=== PATIENT | male | born 1960 | race Caucasian/White ===

== ENCOUNTER → 2016-06-18 | Emergency (ER) | payer OTHER, BC ==
[~2016-06-18] VITALS: Ht 177.8 cm; Wt 93.3 kg
[~2016-06-18] MED LIST: FLUT9.9S NS; GLUC-144 PO; IBUP-15 PO; LORA10TA7 PO; [UNRECOGNIZED DRUG - REMARK]
--- NOTE | 2016-06-18 12:33 | Diagnostic Imaging Report ---
Three views of the lumbar spine. INDICATION: Fall. FINDINGS: There is left convexity scoliosis of the lumbar spine centered around the L3 level. There is a suggestion of minimal vertebral height loss anteriorly at the T12 and L1 levels. There are associated multilevel disc degenerative changes with osteophyte formation and mild disc height loss at the L1-L2 level. No significant posterior osteophyte is seen. There is satisfactory alignment of the posterior spinal line suggested. IMPRESSION: Left convexity scoliosis and associated degenerative changes. There is minimal anterior wedge deformity at the T12 and L1 levels. If the location of injury and pain is around the upper lumbar spine, then MRI evaluation could be considered. Dictated by: Dictated on workstation # [id number]
--- NOTE | 2016-06-18 13:52 | ED Trauma-Multisystem ---
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 He now relates to acute pain and stiffness. There is no numbness or tingling. Occurred: Just Prior to Arrival Pain/Injury Location: Back Method of Injury: Fall Allergies and Home Medications Allergies Coded Allergies: No Known Drug Allergies (Verified Allergy, Unknown, 10/24/07) Home Medications Fluticasone Propionate 9.9 Ml [place].susp, 9.9 ML NS, (Reported) Glucosamine HCl/Chondr Coleman A Na 1 Each Tablet, 1 EACH PO DAILY, (Reported) Ibuprofen 200 Mg Tablet, 800 MG PO DAILY, (Reported) Loratadine 10 Mg Tablet, 10 MG PO DAILY, (Reported) Constitutional: see HPI Eyes: No Symptoms Reported Ears: No Symptoms Reported Nose: No Symptoms Reported Mouth: No Symptoms Reported Throat: No Symptoms to Report Respiratory: no symptoms reported Cardiovascular: No Symptoms Reported Gastrointestinal: no symptoms reported Genitourinary: no symptoms reported Musculoskeletal: back pain, muscle stiffness Skin: no symptoms reported Psychiatric/Neurological: No Symptoms Reported Past Pvvbzfd-Rghiwb-Uszzxh Hx Patient Social History Alcohol Use: Occasionally Uses Recreational Drug Use: No Smoking Status: Never a Smoker Recent Foreign Travel: No Contact w/Someone Who Travel: No Recent Infectious Disease Expo: No Recent Hopitalizations: No Immunizations Up To Date Tetanus Booster (TDap): Less than 5yrs Date of Influenza Vaccine: Nov 27, 2015 Seasonal Allergies Seasonal Allergies: Yes Surgeries HX Surgeries: Yes Surgeries: Adenoidectomy, Appendectomy, Tonsillectomy, Vasectomy Respiratory Hx Respiratory Disorders: No Cardiovascular Hx Cardiac Disorders: No Neurological Hx Neurological Disorders: No Reproductive System Hx Reproductive Disorders: No Sexually Transmitted Disease: No HIV/AIDS: No Genitourinary Hx Genitourinary Disorders: No Gastrointestinal Hx Gastrointestinal Disorders: No Musculoskeletal Hx Musculoskeletal Disorders: Yes Musculoskeletal Disorders: Arthritis Endocrine Hx Endocrine Disorders: No HEENT HX ENT Disorders: No Hearing Impairment: Denies Cancer Hx Cancer: No Psychosocial Hx Psychiatric Problems: No Integumentary HX Skin/Integumentary Disorder: No Blood Transfusions Hx Blood Disorders: No Physical Exam Vital Signs Vital Sign - Last 12Hours 06/18/16 11:19 Temp 98.2 Pulse 75 Resp 16 B/P (MAP) 129/83 Pulse Ox 96 Temperature (Fahrenheit): 98.2 General Appearance: Mild Distress Head: No Evidence of Injury Eyes: Bilateral Eye Normal Inspection Ears, Nose, Throat: No Evidence of ENT Injury Neck: Full Range of Motion, Normal Inspection, Non Tender, Supple Cardiovascular: Regular Rate, Rhythm Respiratory: Chest Non Tender, Lungs Clear, Normal Breath Sounds, No Accessory Muscle Use, No Respiratory Distress Gastrointestinal: Normal Bowel Sounds, No Organomegaly, No Pulsatile Mass, Non Tender, Soft Back: Normal Inspection, Vertebral Tenderness Extremity: Normal Capillary Refill, Normal Inspection, Normal Range of Motion, Non Tender, No Calf Tenderness, No Pedal Edema Neurologic/Psychiatric: Alert, Oriented x3, No Motor/Sensory Deficits, Normal Mood/Affect Skin: Normal Color, Warm/Dry Lymphatic: No Adenopathy [place] Coma Score Best Eye Response ([place]): (4) Open Spontaneously Best Verbal Response (Alexi): (5) Oriented Best Motor Response (Alexi): (6) Obeys Commands Progress/Results/Core Measures Results/Orders My Orders Orders - LEVON WOODS MD Lumbar Spine - 2-3 Views (06/18/16 11:45) Vital Signs/I&O Vital Sign - Last 12Hours 06/18/16 11:19 Temp 98.2 Pulse 75 Resp 16 B/P (MAP) 129/83 Pulse Ox 96 Blood Pressure Mean: 98 Departure Impression Impression: Primary Impression: low back pain Disposition: 01 HOME, SELF-CARE Condition: Stable/Unchanged Departure-Patient Inst. Decision time for Depature: 13:54 Referrals: AJ ALLISON MD (PCP/Family) Primary Care Physician Add. Discharge Instructions: All discharge instructions reviewed with patient and/or family. Voiced understanding. Use heat to the area. Take ibuprofen 600 mg 3 or 4 times daily or naproxen 500 mg twice daily. If not able to see improvement early next week see your doctor for possible additional x-rays LEVON WOODS MD Jun 18, 2016 13:52
[2016-06-18 14:12] VITALS: BP 129/83
== END | disposition home or self-care (01) ==
LOC: EDUNIT# 11:06 → ER 11:08
DX: S39.92XA Unspecified injury of lower back, initial encounter (principal); M47.816 Spondylosis without myelopathy or radiculopathy, lumbar region; M41.26 Other idiopathic scoliosis, lumbar region; W10.9XXA Fall (on) (from) unspecified stairs and steps, initial encounter; Y99.0 Civilian activity done for income or pay
CPT/HCPCS: 72100; 99282

== ENCOUNTER → 2016-06-21 | Outpatient (REF) ==
--- NOTE | 2016-06-21 11:16 | Diagnostic Imaging Report ---
Two views of the left ribs. INDICATION: Fall. FINDINGS: There is no rib fracture seen. The left lung is clear. The heart size appear enlarged. IMPRESSION: No rib fracture seen. Cardiomegaly. Dictated by: Dictated on workstation # [id number]
== END | disposition home or self-care (01) ==
LOC: OCC 10:44
PROVIDERS: ATTEND Nurse Practitioner Family
CPT/HCPCS: 71100

== ENCOUNTER → 2016-07-06 | Outpatient (CLI) | payer BC, OTHER | LOC: CARD 10:08 | PROVIDERS: ATTEND Family Medicine | DX: R07.89 Other chest pain (principal) | CPT/HCPCS: 93017 ==

== ENCOUNTER 2017-08-01 19:31 | Emergency (ER) | payer BC ==
[~2017-08-01] VITALS: Ht 177.8 cm; Wt 93.3 kg
[~2017-08-01 19:31] MED LIST changes: -IBUP-15 PO; +IBUP-16 PO
[2017-08-01] MEDS ORDERED: FINA5TAB6 (20:07)
--- NOTE | 2017-08-01 20:26 | Diagnostic Imaging Report ---
INDICATION: Trauma, right ankle pain and swelling laterally 3 views of the right ankle show a small bony density adjacent to the talus between the tip of the talus and lateral malleolus which has a rounded corticated appearance and does not have the appearance of being an acute fracture. I see no acute fracture, dislocation or other acute bony abnormality. There is swelling laterally. IMPRESSION: Swelling. No fracture is seen. Dictated by: Dictated on workstation # [id number]
--- NOTE | 2017-08-01 20:32 | ED Lower Extremity ---
General Chief Complaint: Lower Extremity Stated Complaint: R ANKLE INJ Nursing Triage Note: c/o R ankle pain after stepping off trailer wrong Nursing Sepsis Screen: No Definite Risk History of Present Illness Date Seen by Provider: August 01, 2017 Time Seen by Provider: 20:05 Initial Comments 57-year-old male presents for right ankle pain. He states that he stepped in a hole and rolled his ankle earlier today, inversion injury. He denies previous history of injuries to his right lower extremity. He has taken no pain medication prior to this and rates his pain a 2-3/10. Onset: this afternoon Severity: mild Pain/Injury Location: right ankle Method of Injury: twisted Allergies and Home Medications Allergies Coded Allergies: No Known Drug Allergies (Verified Allergy, Unknown, 10/24/07) Home Medications Glucosamine HCl/Chondr Coleman A Na 1 Each Tablet, 1 EACH PO DAILY, (Reported) Ibuprofen 200 Mg Tablet, 800 MG PO DAILY, (Reported) Loratadine 10 Mg Tablet, 10 MG PO DAILY, (Reported) Patient Home Medication List Home Medication List Reviewed: Yes Constitutional: no symptoms reported, see HPI Musculoskeletal: see HPI, joint pain, joint swelling All Other Systems Reviewed Negative Unless Noted: Yes Past Fiwnnmb-Ftrdye-Zrjnzr Hx Past Med/Social Hx: Reviewed Nursing Past Med/Soc Hx Patient Social History Alcohol Use: Occasionally Uses Number of Drinks Today: AA Alcohol Beverage of Choice: Beer Recreational Drug Use: No Recent Foreign Travel: No Contact w/Someone Who Travel: No Recent Infectious Disease Expo: No Recent Hopitalizations: No Physical Abuse: No Sexual Abuse: No Immunizations Up To Date Tetanus Booster (TDap): Less than 5yrs Date of Influenza Vaccine: Nov 27, 2015 Seasonal Allergies Seasonal Allergies: Yes Past Medical History Surgeries: Yes (T&A,WISDOM TEETH REMOVED) Adenoidectomy, Appendectomy, Tonsillectomy, Vasectomy Respiratory: No Currently Using CPAP: No Currently Using BIPAP: No Cardiac: No Neurological: No Reproductive Disorders: No Sexually Transmitted Disease: No HIV/AIDS: No Gastrointestinal: No Musculoskeletal: Yes Arthritis Endocrine: No Hearing Impairment: Denies Cancer: No Psychosocial: No Nursing Suicide Risk Score: 0 Integumentary: No Blood Disorders: No Physical Exam Vital Signs Vital Signs - First Documented 08/01/17 19:52 Temp 98.0 Pulse 77 Resp 18 B/P (MAP) 144/72 (96) Pulse Ox 98 Capillary Refill : Less Than 3 Seconds General Appearance: WD/WN, no apparent distress Cardiovascular: normal peripheral pulses, regular rate, rhythm, no murmur Respiratory: chest non-tender, lungs clear, normal breath sounds Ankles: right ankle bone tenderness, right ankle limited range of motion ( secondary to pain), right ankle pain, right ankle soft tissue tenderness (over the ATFL), right ankle swelling, right ankle other (trace limitation of motion with flexion and extension, power V/Vwith resisted range of motion to the right ankle. Negative talar tilt and anterior drawer) Neurologic/Tendon: normal sensation, normal motor functions, normal tendon functions Neurologic/Psychiatric: no motor/sensory deficits, alert, normal mood/affect, oriented x 3 Progress/Results/Core Measures Results/Orders My Orders Orders - BRIANDA ARMSTRONG Ankle, Right, 3 Views (08/01/17 20:09) Rx-Tramadol Hcl (Rx-Ultram) (08/01/17 20:43) Vital Signs/I&O 08/01/17 19:52 Temp 98.0 Pulse 77 Resp 18 B/P (MAP) 144/72 (96) Pulse Ox 98 Blood Pressure Mean: 96 Progress Progress Note : Time: 20:05 Progress Note Initial evaluation completed, patient declined need for pain medication at this time. We'll obtain x-rays of the right ankle and reevaluation. Ice pack in place. 2044 x-ray show no fracture dislocation. 4 inch Louis wrap applied. Discharge instructions and return precautions discussed in detail. All questions answered. Diagnostic Imaging Diagonstic Imaging: Xray Plain Films/CT/US/NM/MRI: ankle Comments NAME: EMILYMIKE Shanika [facility] REC#: [id number] PT STATUS: REG ER : 1960 PHYSICIAN: BRIANDA ARMSTRONG ADMIT DATE: 08/01/17/ER Draft Date of Exam:08/01/17 ANKLE, RIGHT, 3 VIEWS INDICATION: Trauma, right ankle pain and swelling laterally 3 views of the right ankle show a small bony density adjacent to the talus between the tip of the talus and lateral malleolus which has a rounded corticated appearance and does not have the appearance of being an acute fracture. I see no acute fracture, dislocation or other acute bony abnormality. There is swelling laterally. IMPRESSION: Swelling. No fracture is seen. Dictated on workstation # [id number] Dict: 08/01/172022 Trans: 08/01/172025 [facility] [id number] Interpreted by: ASHWINI CELIS MD Electronically signed by: Departure Impression Primary Impression: Right ankle sprain Qualified Codes: S93.491A - Sprain of other ligament of right ankle, initial encounter Disposition: HOME, SELF-CARE Condition: Improved Departure-Patient Inst. Decision time for Depature: 20:30 Referrals: AJ ALLISON MD (PCP/Family) Primary Care Physician Patient Instructions: Ankle Sprain (DC) Add. Discharge Instructions: Ice to right ankle 20 minutes every 2 hours while awake. Elevate right ankle higher than your heart. Continue taking your anti-inflammatory prescribed by Dr. Figueroa. You may also take Tylenol 650 mg every 6 hours. Gentle range of motion to the right ankle. Progress Activity as tolerated. Use Louis wrap to help with swelling for the right ankle. Follow-up with your Dr. Allison Wed for clearance to return to work. Return to emergency department for new problems or injuries. All discharge instructions reviewed with patient and/or family. Voiced understanding. Work/School Note: Work Release Form Date Seen in the Emergency Department: August 01, 2017 Return to Work: August 04, 2017 Restrictions: Need Release from Doctor Other Restrictions Listed Below: right ankle limited mobility, frequent ice and elevation Copy Copies To 1: AJ ALLISON MD, AMY ARNP August 01, 2017 20:32
[2017-08-01] MEDS ORDERED: RX-TRAMADOL 50 MG (ULTRAM) TAB PPK#4 PO STA (20:43)
[2017-08-01 20:50] VITALS: BP 0/0
== END 2017-08-01 20:50 | disposition home or self-care (01) ==
LOC: EDUNIT# 19:31 → ER 19:33
DX: S93.601A Unspecified sprain of right foot, initial encounter (principal); Z90.49 Acquired absence of other specified parts of digestive tract; Z90.89 Acquired absence of other organs; X50.1XXA Overexertion from prolonged static or awkward postures, initial encounter
CPT/HCPCS: 73610

== ENCOUNTER → 2017-11-11 | Outpatient (CLI) | payer OTHER, BC ==
[~2017-11-11] MED LIST changes: +FINA5TAB6
--- NOTE | 2017-11-11 16:56 | Diagnostic Imaging Report ---
PROCEDURE: MRI right joint upper extremity without contrast. TECHNIQUE: Multiplanar, multisequence non contrast-enhanced MRI of the right upper extremity was accomplished. INDICATION: Right arm injury on 10/19/2017 with right shoulder pain. COMPARISON: None. FINDINGS: No acute fracture is seen in the right shoulder. Alignment appears normal. No significant joint effusion is seen. There is a full-thickness tear of the anterior supraspinatus tendon measuring approximately 1.4 cm AP, with approximately 1.8 cm of retraction. A moderate amount of fluid is seen in the subacromial-subdeltoid bursa. This tear also appears to involve the anterior fibers of the infraspinatus tendon, with medial intrasubstance extension to the myotendinous junction. The subscapularis tendon demonstrates low-grade partial thickness tearing of the superior fibers. The teres minor tendon is intact. No muscular atrophy is seen. The long head of the biceps tendon demonstrates a split tear proximally with tendinopathy. The tendon appears perched on the lesser tuberosity. The glenoid labrum is suboptimally evaluated in the absence of intra-articular contrast, although there appears to be mild irregularity of the posterior labrum, which may be degenerative. No large paralabral cysts are seen. The acromion has a slightly curved undersurface without significant hooking. There is mild lateral downsloping. Moderate degenerative changes are seen in the acromioclavicular joint. The coracoclavicular and coracoacromial ligaments are intact. No other soft tissue fluid collections are seen. There is no axillary lymphadenopathy. IMPRESSION: 1. Small to moderate-sized full-thickness tear of the anterior right supraspinatus tendon. The tear also appears to involve a small portion of the anterior infraspinatus tendon with medial intrasubstance extension. 2. Low-grade partial-thickness tearing of the superior subscapularis tendon. 3. Moderate degenerative changes in the right acromioclavicular joint with mild lateral downsloping of the acromion. 4. Proximal split tear and tendinopathy of the long head of the biceps tendon. Dictated by: Dictated on workstation # [id number]
== END ==
LOC: RAD 13:47
PROVIDERS: ATTEND Nurse Practitioner Family
DX: S46.011A Strain of muscle(s) and tendon(s) of the rotator cuff of right shoulder, initial encounter (principal); S46.811A Strain of other muscles, fascia and tendons at shoulder and upper arm level, right arm, initial encounter; S46.211A Strain of muscle, fascia and tendon of other parts of biceps, right arm, initial encounter; M19.011 Primary osteoarthritis, right shoulder; M67.88 Other specified disorders of synovium and tendon, other site
CPT/HCPCS: 73221

== ENCOUNTER → 2017-11-18 | Outpatient (REF) ==
[~2017-11-18] MED LIST changes: +GADOBUTROL 7.5 MMOL/7.5 ML (GADAVIST) VIAL IV ONE; +IOHEXOL 300 MG/ML 50 ML (OMNIPAQUE 300) VIAL IV ONE; +LIDOCAINE 1% INJ 20 ML 20 ML VIAL ONE
--- NOTE | 2017-11-18 14:12 | Diagnostic Imaging Report ---
INDICATION: Right shoulder pain. Patient presents for right shoulder injection prior to MRI. FINDINGS: Patient was brought to the procedure room, placed on the table in the supine position. The skin of the right shoulder was prepped and draped in the usual sterile fashion. A small amount of 1% lidocaine was utilized for local anesthesia. A 21-gauge needle was advanced into the right shoulder at the rotator interval. A 15 mL solution of iodinated contrast, normal saline, and gadolinium was injected under fluoroscopic observation. The needle was withdrawn and hemostasis was obtained. Total of 9 seconds of fluoroscopy was utilized. Patient tolerated the procedure well and was sent to MRI in satisfactory condition. IMPRESSION: Successful fluoroscopically assisted right shoulder injection of gadolinium contrast solution for MRI. Dictated by: Dictated on workstation # [id number]
--- NOTE | 2017-11-18 16:54 | Diagnostic Imaging Report ---
INDICATION: Abnormal right shoulder MRI earlier this month. Continued right shoulder pain. Rotator cuff tears noted on previous MRI. EXAMINATION: MRI of the right shoulder with contrast from 11/18/2017. COMPARISON: Comparison made to 11/11/2017. FINDINGS: As previously described, there is a full-thickness tear involving the supraspinatus tendon. Far anteriorly, a few residual fibers at the footprint are possible but more posteriorly there is focal retraction measuring approximately 13 mm. This involves much of the supraspinatus tendon with possible involvement of the anterior aspect of the infraspinatus tendon as well. More posteriorly, articular-sided partial tear of the remaining infraspinatus tendon is noted. There is secondary extravasation of contrast from the joint space into the adjacent bursa. Subscapularis tendon is diffusely irregular along its cranial fibers. There is an at least deep partial articular-sided tear of the proximal fibers. Full-thickness extension of the tear is not definitely seen but difficult to completely exclude. However, the transverse ligament appears intact. The proximal long head of the biceps tendon is medially subluxed. It is heterogeneous in nature and contains an intrasubstance tear. More distally, the biceps tendon does lie within the biceps tendon sheath and bicipital groove. The muscle volume is similar to previous imaging. Osseous structures are unchanged. Acromioclavicular osteoarthritic changes again visualized. The labrum is diffusely irregular anteriorly. A small focal tear along the lty-fb-awscemit anterior labrum is suspected. IMPRESSION: 1. Full-thickness tear of the supraspinatus tendon and portions of the anterior infraspinatus tendon, as described above, secondary extravasation of contrast noted. 2. At least a deep partial articular-sided tear of the subscapularis tendon along its cranial aspect. Full-thickness extension in the region difficult to completely exclude but no retraction noted. 3. Medial subluxation of the proximal biceps tendon which contains a longitudinal split or intrasubstance tear. 4. Suspected tear of the mid anterior labrum which may extend into the superior labrum as well. Other findings, as above. Dictated by: Dictated on workstation # [id number]
== END | disposition home or self-care (01) ==
LOC: RAD 12:48
PROVIDERS: ATTEND Nurse Practitioner Family
CPT/HCPCS: 23350; 73040; 73222

== ENCOUNTER 2017-12-14 09:09 | Outpatient (RCR) | payer OTHER ==
[~2017-12-14 09:09] MED LIST changes: -GADOBUTROL 7.5 MMOL/7.5 ML (GADAVIST) VIAL IV ONE; -IOHEXOL 300 MG/ML 50 ML (OMNIPAQUE 300) VIAL IV ONE; -LIDOCAINE 1% INJ 20 ML 20 ML VIAL ONE
== END 2018-01-04 12:54 | disposition home or self-care (01) ==
PROVIDERS: ATTEND Orthopaedic Surgery
DX: S46.011A Strain of muscle(s) and tendon(s) of the rotator cuff of right shoulder, initial encounter (principal); X50.1XXA Overexertion from prolonged static or awkward postures, initial encounter

== ENCOUNTER → 2019-05-16 | Outpatient (CLI) | payer BC ==
--- NOTE | 2019-05-16 10:36 | Diagnostic Imaging Report ---
PROCEDURE: MRI right joint upper extremity without contrast. TECHNIQUE: Multiplanar, multisequence non contrast-enhanced MRI of the right upper extremity was accomplished. INDICATION: Injury to the right shoulder a year ago. Reinjured by exercising recently. EXAMINATION: MRI of the right upper extremity dated 05/16/2019. COMPARISON: 11/18/2017 FINDINGS: There is a focal defect along the greater tuberosity far anteriorly. This extends through the bursal aspect of the supraspinatus tendon in this same region previously the bursal sided fibers appear to be intact therefore this area represents a new tear. It may extend through the articular surface on image #15 of 19 on the coronal sequences. Otherwise this is a very deep bursal sided tear. More posteriorly, however diffuse heterogeneity is seen in the posterior supraspinatus tendon and portions of the infraspinatus tendon. This appears to be predominantly intrasubstance and articular in nature. This would suggest a serpiginous non-retracted full-thickness tear. It could be confirmed with postcontrast imaging if clinically indicated. There is a small amount of fluid in the subdeltoid and subacromial bursa. The subscapularis tendon is somewhat heterogeneous containing changes of tendinosis. A small partial tear cranial aspects of the tendon not excluded but no full-thickness tear or retraction is seen. The long head of biceps tendon lies within the bicipital groove but more proximally is somewhat subluxed medially. It contains abnormal signal intensity within the capsule and could be secondary to intrasubstance or longitudinal partial tear versus marked tendinosis. The labrum grossly unremarkable on this noncontrast examination. Degenerative findings noted at the acromioclavicular joint. IMPRESSION: 1. Likely at least deep partial bursal sided tear of the far anterior supraspinatus tendon with serpiginous full-thickness extension more posteriorly also suspected. This is a change in appearance when compared to previous imaging. 2. Fluid in the subdeltoid/subacromial bursa likely due to bursitis. 3. Tiny partial tear along the subscapularis tendon with medial subluxation of the biceps tendon. A partial tear or focal tendinosis in the intracapsular aspect of the biceps tendon not excluded. Other findings as above. Dictated by: Dictated on workstation # [id number]
== END ==
LOC: RAD 08:26
PROVIDERS: ATTEND Nurse Practitioner
DX: S46.011A Strain of muscle(s) and tendon(s) of the rotator cuff of right shoulder, initial encounter (principal); Y93.B9 Activity, other involving muscle strengthening exercises
CPT/HCPCS: 73221